=== PATIENT | male | born 1990 | race Two or more races ===

== ENCOUNTER 2019-02-27 08:30 | Emergency (ER) | payer SELFPAY ==
--- NOTE | 2019-02-27 09:29 | ER Document Report ---
HPI - HPI Patient complains to provider of: Left eye injury Time Seen by Provider: 02/27/19 09:25 Onset: Just prior to arrival Onset/Duration: Sudden Quality of pain: Achy Pain Level: 5 Context: Patient states that he was walking out of his house and a branch hit his left eye. Patient denies any use of glasses or contact lenses. patient denies any change in vision. Associated Symptoms: Other - Left eye redness Exacerbated by: Denies Relieved by: Denies Similar symptoms previously: No Recently seen / treated by doctor: No - ROS ROS below otherwise negative: Yes Systems Reviewed and Negative: Yes All other systems reviewed and negative - EENT EENT: REPORTS: Eye problems - Left eye redness, tearing - GASTROINTESTINAL Gastrointestinal: DENIES: Nausea, Patient vomiting - DERM Skin Color: Normal Skin Problems: None Past Medical History - General Information source: Patient - Social History Smoking Status: Never Smoker Frequency of alcohol use: Occasional Drug Abuse: None Occupation: Painting Family History: Reviewed & Not Pertinent - Medical History Medical History: Negative Surgical Hx: Negative Vertical Provider Document - CONSTITUTIONAL Agree With Documented VS: Yes Exam Limitations: No Limitations General Appearance: WD/WN, No Apparent Distress - HEENT HEENT: Atraumatic, Normocephalic, PERRLA Notes: Mild injection to sclera of left eye, swelling to conjunctive of left lateral eye. No corneal abrasion, ulcer, foreign body or dendrite. No fluorescein uptake - NECK Neck: Normal Inspection - RESPIRATORY Respiratory: No Respiratory Distress - MUSCULOSKELETAL/EXTREMETIES Musculoskeletal/Extremeties: MAEW - NEURO Level of Consciousness: Awake, Alert, Appropriate Motor/Sensory: No Motor Deficit - DERM Integumentary: Warm, Dry Discharge - Discharge Clinical Impression: Abrasion of sclera Qualifiers: Encounter type: initial encounter Laterality: left Qualified Code(s): S05.8X2A - Other injuries of left eye and orbit, initial encounter Condition: Stable Disposition: HOME, SELF-CARE Instructions: Antibiotic Therapy ([facility]), Eye Injury ([facility]) Additional Instructions: Return immediately for any new or worsening symptoms Followup with your primary care provider, call tomorrow to make a followup appointment Follow-up with ecommerce marketing specialist for any persistent pain or problems Prescriptions: Erythromycin Base [E-Mycin 0.5% Oph Ointment 3.5 gm] 1 applic LFT_EYE QID #1 tube Forms: Return to Work Referrals: [facility] [Provider Group] - Follow up as needed
[2019-02-27 09:38] VITALS: BP 101/71
== END 2019-02-27 10:04 | disposition home or self-care (01) ==
LOC: ER 08:30
DX: S05.8X2A Other injuries of left eye and orbit, initial encounter (principal); W22.8XXA Striking against or struck by other objects, initial encounter; Y93.89 Activity, other specified; Y92.009 Unspecified place in unspecified non-institutional (private) residence as the place of occurrence of the external cause
CPT/HCPCS: 99283